=== PATIENT | male | born 1995 | race African-American/Black ===

== ENCOUNTER 2019-02-24 17:13 | Emergency (ER) | payer SELFPAY ==
[~2019-02-24] VITALS: Ht 175.3 cm; Wt 69.0 kg
[2019-02-24] MEDS ORDERED: IBUPROFEN 400MG TABLET PO ONE (19:00)
[2019-02-24 19:19] VITALS: BP 124/90
== END 2019-02-24 19:56 | disposition home or self-care (01) ==
LOC: ER 17:13
DX: M54.5 Low back pain (principal); V49.59XA Passenger injured in collision with other motor vehicles in traffic accident, initial encounter; Y93.89 Activity, other specified; Y92.410 Unspecified street and highway as the place of occurrence of the external cause
CPT/HCPCS: 72100; 99283

== ENCOUNTER 2019-05-09 17:27 | Emergency (ER) | payer SELFPAY ==
[~2019-05-09] VITALS: Ht 175.3 cm; Wt 68.0 kg
[2019-05-09 17:31] VITALS: BP 135/79
[2019-05-09] MEDS ORDERED: KETOROLAC 60MG/2ML VIAL IM ONE (18:00)
== END 2019-05-09 19:55 | disposition home or self-care (01) ==
LOC: ER 17:27
DX: S00.83XA Contusion of other part of head, initial encounter (principal); S00.10XA Contusion of unspecified eyelid and periocular area, initial encounter; M25.561 Pain in right knee; M79.641 Pain in right hand; M25.551 Pain in right hip; Y08.89XA Assault by other specified means, initial encounter; Y93.89 Activity, other specified; Y92.89 Other specified places as the place of occurrence of the external cause; Y99.8 Other external cause status
CPT/HCPCS: 73130; 73560; 96372; 99283; J1885